=== PATIENT | male | born 2000 | race Caucasian/White ===

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

== ENCOUNTER → 2020-10-31 | Outpatient (CLI) | payer BC | END | disposition home or self-care (01) | LOC: LABWHC1 11:35 | PROVIDERS: ATTEND Family Medicine | DX: Z03.89 Encounter for observation for other suspected diseases and conditions ruled out (principal) | CPT/HCPCS: U0003; C9803 ==

== ENCOUNTER 2023-11-21 15:36 | Emergency (ER) | payer BC, OTHER ==
--- NOTE | 2023-11-21 15:59 | ED ---
Back Pain HPI - General Chief Complaint: Back Pain/Injury Stated Complaint: [facility]/Injury to back Time Seen by Provider: 11/21/23 15:50 Source: patient, RN notes reviewed Limitations: no limitations - History of Present Illness Initial Comments: This is a 23-year-old male with no significant past medical history presents emergency department chief complaint of right-sided lumbar back pain. 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 Patient states that while he was driving after the injury he was experiencing pain described as a shooting sensation. He denies paresthesias, or radiation of pain. Denies previous back injuries or surgeries. Denies saddle anesthesias, bladder or bowel incontinence, urinary retention. has not taken anything for the pain since injury occurred around 1300. - Related Data Previous Rx's Medication Instructions Recorded Cyclobenzaprine [Flexeril] 5 mg PO TID PRN #15 tablet 11/21/23 Allergies Allergy/AdvReac Type Severity Reaction Status Date / Time No Known Allergies Allergy Verified 11/21/23 15:52 Review of Systems ROS Statement: Those systems with pertinent positive or pertinent negative responses have been documented in the HPI. ROS Other: All systems not noted in ROS Statement are negative. Past Medical History Past Medical History: No Reported History Additional Past Medical History / Comment(s): frequent ear infections. strep throat History of Any Multi-Drug Resistant Organisms: MRSA Date of last positivie culture/infection: 2008 MDRO Source:: arm and leg boil per mom Past Surgical History: Adenoidectomy, Tonsillectomy Additional Past Surgical History / Comment(s): .TUBES IN EARS, tympanoplasty Past Anesthesia/Blood Transfusion Reactions: No Reported Reaction Past Psychological History: No Psychological Hx Reported Smoking Status: Light tobacco smoker Past Alcohol Use History: Rare Past Drug Use History: None Reported - Past Family History Father Additional Family Medical History / Comment(s): mrsa General Exam Limitations: no limitations General appearance: alert, in no apparent distress Head exam: Present: atraumatic, normocephalic, normal inspection Eye exam: Present: normal appearance, PERRL, EOMI. Absent: scleral icterus, conjunctival injection, periorbital swelling ENT exam: Present: normal exam, mucous membranes moist Neck exam: Present: normal inspection. Absent: tenderness, meningismus, lymphadenopathy Respiratory exam: Present: normal lung sounds bilaterally. Absent: respiratory distress, wheezes, rales, rhonchi, stridor Cardiovascular Exam: Present: regular rate, normal rhythm, normal heart sounds. Absent: systolic murmur, diastolic murmur, rubs, gallop, clicks GI/Abdominal exam: Present: soft, normal bowel sounds. Absent: distended, tenderness, guarding, rebound, rigid Extremities exam: Present: normal inspection, full ROM, normal capillary refill. Absent: tenderness, pedal edema, joint swelling, calf tenderness Back exam: Present: full ROM (pain with active side bending to left ilicited on right side), tenderness (right lumbar paraspinal muscles). Absent: CVA tenderness (R), CVA tenderness (L), rash noted Neurological exam: Present: alert, oriented X3, CN II-XII intact Psychiatric exam: Present: normal affect, normal mood Skin exam: Present: warm, dry, intact, normal color. Absent: rash Course Vital Signs 11/21/23 15:48 Temperature 97.8 F Pulse Rate 64 Respiratory 16 Rate Blood Pressure 123/85 O2 Sat by Pulse 100 Oximetry Medical Decision Making - Medical Decision Making Was pt. sent in by a medical professional or institution (, PA, INSPECTOR BALANCE WHEEL [employer]ION, urgent care, hospital, or jail...) When possible be specific @ -No Did you speak to anyone other than the patient for history (EMS, parent, family, police, friend...)? What history was obtained from this source @ -No Did you review nursing and triage notes (agree or disagree)? Why? @ -I reviewed and agree with nursing and triage notes Were old charts reviewed (outside hosp., previous admission, EMS record, old EKG, old radiological studies, urgent care reports/EKG's, jail records)? Report findings @ -No old charts were reviewed Differential Diagnosis (chest pain, altered mental status, abdominal pain women, abdominal pain men, vaginal bleeding, weakness, fever, dyspnea, syncope, hea dache, dizziness, GI bleed, back pain, seizure, CVA, palpatations, mental health, musculoskeletal)? @ -Differential Musculoskeletal Muscular strain, contusion, ligament sprain, fracture, arthritis, septic arthritis, bursitis, cellulitis, muscle spasm, nerve compression, DVT, arterial occlusion, herpes zoster, electrolyte abnormality, tumor.... This is not meant to be in all inclusive list EKG interpreted by me (3pts min.). @ -None X-rays interpreted by me (1pt min.). @ -X-ray of thoracolumbar junction and lumbar spine with no acute fracture noted. CT interpreted by me (1pt min.). @ -None done U/S interpreted by me (1pt. min.). @ -None done What testing was considered but not performed or refused? (CT, X-rays, U/S, labs)? Why? @ -None What meds were considered but not given or refused? Why? @ -None Did you discuss the management of the patient with other professionals (professionals i.e. , PA, INSPECTOR [employer], lab, RT, psych nurse, manager social responsibility, crystal inspector, teacher, division officer weapons department, case management social worker)? Give summary @ -No Was smoking cessation discussed for >3mins.? @ -No Was critical care preformed (if so, how long)? @ -No Were there social determinants of health that impacted care today? How? (Homelessness, low income, unemployed, alcoholism, drug addiction, transportation, low edu. Level, literacy, decrease access to med. care, fpc, rehab)? @ -No Was there de-escalation of care discussed even if they declined (Discuss DNR or withdrawal of care, Hospice)? DNR status @ -No What co-morbidities impacted this encounter? (DM, HTN, Smoking, COPD, CAD, Cancer, CVA, ARF, Chemo, Hep., AIDS, mental health diagnosis, sleep apnea, morbid obesity)? @ -None Was patient admitted / discharged? Hospital course, mention meds given and route, prescriptions, significant lab abnormalities, going to OR and other pertinent info. @ -23-year-old male with right-sided lumbar back pain. On physical examination patient noted to have pain with active sidebending to the left elicited on the right-hand side. Negative straight leg test. Sent for x-ray imaging of his lumbar and thoracolumbar junction. Patient given shot of Toradol and IM Solu- Medrol. On reevaluation, patient states that he feels mildly better after dose of steroids. Reviewed patient's x-ray findings with him, with no fracture noted. symptoms are likely secondary to acute muscle strain. Patient will be sent home with prescription for as needed muscle relaxers over the next few days. Discussed with Dr. Cottrell. Undiagnosed new problem with uncertain prognosis? @ -No Drug Therapy requiring intensive monitoring for toxicity (Heparin, Nitro, Insulin, Cardizem)? @ -No Were any procedures done? @ -No Diagnosis/symptom? @ -[muscle strain of lumbar back Acute, or Chronic, or Acute on Chronic? @ -acute Uncomplicated (without systemic symptoms) or Complicated (systemic symptoms)? @ -Uncomplicated Side effects of treatment? @ -[No Exacerbation, Progression, or Severe Exacerbation? @ -No Poses a threat to life or bodily function? How? (Chest pain, USA, DC, pneumonia, PE, COPD, DKA, ARF, appy, cholecystitis, CVA, Diverticulitis, Homicidal, Suicidal, threat to staff... and all critical care pts) @ -No Disposition Clinical Impression: Strain of lumbar region Narrative: Please return to the Emergency Department if symptoms worsen or any other concerns. Disposition: HOME SELF-CARE Condition: Good Instructions (If sedation given, give patient instructions): Acute Low Back Pain (ED) Is patient prescribed a controlled substance at d/c from ED?: No Referrals: Willian Carroll MD [Primary Care Provider] - 1-2 days Time of Disposition: 17:31
[2023-11-21 16:24] VITALS: RESP 16
[2023-11-21] MEDS: KETOROLAC 15 MG/ML 1 ML VIAL IM STA (16:27)
[2023-11-21] MEDS: methylPREDNISolone SOD SUCCI 125 MG/2 ML VIAL IM ONE (16:30)
--- NOTE | 2023-11-21 17:22 | XR ---
EXAMINATION TYPE: XR lumbar spine 2 or 3V DATE OF EXAM: 11/21/2023 4:53 PM CLINICAL INDICATION:Male, 23 years old with history of back pain, injury; [facility] COMPARISON: None TECHNIQUE: XR lumbar spine 2 or 3V - Frontal, lateral and coned in L5-S1 lateral views of the spine. FINDINGS: No evidence of any acute osseous pathology. No evidence of loss of vertebral body height i s seen. There is normal alignment of the lumbar vertebral bodies. Mild scattered disc space narrowing . Minimal marginal osteophyte formation throughout the visualized spine. There is facet joint arthrop athy throughout the spine. Scattered at least mild neural foraminal stenosis. IMPRESSION: 1. No acute fracture. 2. Mild multilevel disc degeneration.
--- NOTE | 2023-11-21 17:22 | XR ---
EXAMINATION TYPE: XR thoraco lumbar junction DATE OF EXAM: 11/21/2023 4:53 PM CLINICAL INDICATION:Male, 23 years old with history of pain, injury; [facility] COMPARISON: None TECHNIQUE: XR thoraco lumbar junction - Frontal, lateral and coned in L5-S1 lateral views of the spin e. FINDINGS: No evidence of any acute osseous pathology. No evidence of loss of vertebral body height i s seen. There is normal alignment of the lumbar vertebral bodies. Mild scattered disc space narrowing . Minimal marginal osteophyte formation throughout the visualized spine. There is facet joint arthrop athy throughout the spine. Scattered at least mild neural foraminal stenosis. IMPRESSION: 1. No acute fracture. 2. Mild multilevel disc degeneration.
[2023-11-21 18:15] VITALS: BP 128/78; PULSE 72; TEMP 98.4
== END 2023-11-21 18:23 | disposition home or self-care (01) ==
LOC: EC 15:36
DX: S39.012A Strain of muscle, fascia and tendon of lower back, initial encounter (principal); F17.200 Nicotine dependence, unspecified, uncomplicated; X58.XXXA Exposure to other specified factors, initial encounter
CPT/HCPCS: 72080; 72100; 99283; 96372 ×2; J1885; J2919